=== PATIENT | male | born 1960 | race Caucasian/White ===

== ENCOUNTER 2022-03-05 20:59 | Emergency (ER) | payer OTHER, SELFPAY ==
[2022-03-05 21:09] VITALS: BP 226/135; PULSE 82; RESP 20; TEMP 36.6; O2SAT 99; BMI 34.8
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
[2022-03-05] MEDS: CYCLOBENZAPRINE 10 MG PREPACK 1 BOTTLE MISC (23:31)
== END 2022-03-05 23:32 | disposition home or self-care (01) ==
PROVIDERS: Emergency Provider Emergency Medicine
DX: S16.1XXA Strain of muscle, fascia and tendon at neck level, initial encounter (principal); M25.511 Pain in right shoulder; V49.9XXA Car occupant (driver) (passenger) injured in unspecified traffic accident, initial encounter
CPT/HCPCS: 72040; 73030; 99281; 99283